=== PATIENT | female | born 1950 | race Caucasian/White ===

== ENCOUNTER 2018-05-31 13:15 | Inpatient (IN) | payer OTHER ==
[~2018-05-31] VITALS: Ht 152.4 cm; Wt 97.0 kg
[2018-05-31 14:39] LABS: HEMATOCRIT 32.2 % (36.0-46.0); MCH 30.9 PG (29.0-34.0); MCHC 34.2 G/DL (30.0-36.0); MCV 90.4 FL (83-99); PLATELET COUNT 176 K/uL (156-360); RBC DIS.WIDTH-CV 12.9 % (11.8-14.6); RBC DIS.WIDTH-SD 43.2 % (39-53); RED BLOOD COUNT 3.56 M/uL (3.80-5.20); WHITE BLOOD COUNT 17.8 K/uL (4.1-10.2)
[2018-05-31 14:47] LABS: ALBUMIN 3.3 g/dL (3.2-4.8)
[2018-05-31 14:48] LABS: CHLORIDE 97 mEq/L (99-109); POTASSIUM 3.5 mEq/L (3.7-5.4); SODIUM 133 mEq/L (136-147)
[2018-05-31 14:50] LABS: GLUCOSE 149 mg/dL (70-99); TOTAL PROTEIN 7.4 g/dL (6.4-8.3)
[2018-05-31 14:53] LABS: ALKALINE PHOSPHATASE 183 IU/L (3-129)
[2018-05-31 14:54] LABS: CREATININE 2.1 mg/dL (0.6-1.3); GFR ESTIMATE (CALCULATED) 25 mL/min/
[2018-05-31 14:55] LABS: AST (GOT) 65 IU/L (2-34); UREA NITROGEN (BUN) 68 mg/dL (9-23)
[2018-05-31 14:56] LABS: ALT (GPT) 52 IU/L (3-49)
[2018-05-31 14:57] LABS: LIPASE 33 U/L (1.0-51.0)
[2018-05-31 16:23] LABS: APPEARANCE CLEAR ((CLEAR)); BILIRUBIN NEGATIVE; BLOOD NEGATIVE; COLOR YELLOW ((YELLOW)); GLUCOSE (STRIP) NEGATIVE; KETONES NEGATIVE; LEUKOCYTES MODERATE; NITRITE NEGATIVE; PROTEIN (STRIP) NEGATIVE; SPECIFIC GRAVITY 1.009 (1.000-1.030); UROBILINOGEN 0.2 MG/DL (0.2-1.0)
[2018-05-31 16:55] LABS: RED BLOOD CELLS 0-5 /HPF (0-5); WHITE BLOOD CELLS 30-40 /HPF (0-5)
[2018-05-31 16:57] LABS: EPITHELIAL CELLS RARE /HPF
[2018-05-31 16:58] LABS: BACTERIA 3+ /HPF; CALCIUM OXALATE CRYSTALS RARE /HPF; HYALINE CASTS 0-5 /LPF; MUCUS NONE SEEN /LPF; UCUL ADDED? YES
[2018-05-31] MEDS ORDERED: SYNTHROID150 MCG PO (19:33)
[2018-05-31] MEDS ORDERED: OMEPRAZOLE40 M1 PO (19:33)
[2018-05-31] MEDS ORDERED: HYDROCHLOROTH12.5 M3 PO (19:34)
[2018-05-31] MEDS ORDERED: ZOFRAN4 MG PO (19:34)
[2018-05-31] MEDS ORDERED: LISINOPRIL20 MG PO (19:34)
[2018-05-31] MEDS ORDERED: PROMETHAZINE HC25 M1 PO (19:34)
[2018-05-31] MEDS ORDERED: ALDACTONE25 MG PO (19:34)
[2018-05-31] MEDS ORDERED: LIPITOR10 MG PO (19:34)
[2018-05-31] MEDS ORDERED: ALEVE220 MG PO (19:35)
[2018-05-31] MEDS ORDERED: LYRICA100 MG PO (19:35)
[2018-05-31] MEDS ORDERED: DIGESTIVE ENZY1 EAC3 PO (19:35)
[2018-05-31] MEDS ORDERED: HAIR, SKIN & N1 EAC1 PO (19:36)
[2018-05-31] MEDS ORDERED: BENADRYL ALLERG25 MG PO (19:36)
[2018-06-01] VITALS (19 sets, daily range): BP systolic 90–151; BP diastolic 43–109
[2018-06-01 01:07] LABS: HEMATOCRIT 26.6 % (36.0-46.0); HEMOGLOBIN 9.1 G/DL (11.9-15.5); MCH 31.2 PG (29.0-34.0); MCHC 34.2 G/DL (30.0-36.0); MCV 91.1 FL (83-99); PLATELET COUNT 142 K/uL (156-360); RBC DIS.WIDTH-CV 13.2 % (11.8-14.6); RBC DIS.WIDTH-SD 43.8 % (39-53); RED BLOOD COUNT 2.92 M/uL (3.80-5.20); WHITE BLOOD COUNT 10.6 K/uL (4.1-10.2)
[2018-06-01 01:57] LABS: COMMENTS - BLOOD GASES C; DEVICE VENT; FI02 60 %; MECHANICAL RATE 12 resp/min; MODE AC; PEEP 7.5 CM/H20; SITE RB; TIDAL VOLUME 450 ML; TOTAL RESP RATE 20 resp/min
[2018-06-01 01:58] LABS: BASE EXCESS -6.3 mEq/L (-3 to +3); CARBOXY HGB 0 % (0-5); METHEMOGLOBIN 0 % (0-1.5); O2 SATURATION (CALCULATED) 97.7 % (95-99); PCO2 36 mm Hg (35-45); PO2 263 mm Hg (80-100); pH 7.33 (7.35-7.45)
[2018-06-01 07:22] LABS: ALBUMIN 2.2 G/DL (3.2-4.8); ALKALINE PHOSPHATASE 138 IU/L (3-129); ALT (GPT) 45 IU/L (3-49); AST (GOT) 72 IU/L (2-34); CHLORIDE 112 MEQ/L (99-109); GLUCOSE 169 mg/dL (70-99); MAGNESIUM 1.1 mg/dl (1.3-2.7); PHOSPHORUS 3.6 mg/dL (2.5-4.9); POTASSIUM 3.7 MEQ/L (3.7-5.4); TOTAL BILIRUBIN 0.7 MG/DL (0.0-1.0); TOTAL PROTEIN 4.7 G/DL (6.4-8.3); UREA NITROGEN (BUN) 33 mg/dL (9-23)
[2018-06-01 07:23] LABS: GFR ESTIMATE (CALCULATED) 58 mL/min/; SODIUM 143 MEQ/L (136-147)
[2018-06-01 08:17] LABS: HEMOGLOBIN 9.3 G/DL (11.9-15.5); MCH 30.3 PG (29.0-34.0); MCHC 32.1 G/DL (30.0-36.0); MCV 94.5 FL (83-99); PLATELET COUNT 154 K/uL (156-360); RBC DIS.WIDTH-CV 13.6 % (11.8-14.6); RBC DIS.WIDTH-SD 47.1 % (39-53); RED BLOOD COUNT 3.07 M/uL (3.80-5.20); WHITE BLOOD COUNT 12.7 K/uL (4.1-10.2)
[2018-06-01 12:04] LABS: HEMOGLOBIN A1c (GLYCOHEMOGLOB) 6.7 % (Below 5.7)
[2018-06-01 13:27] LABS: COMMENTS - BLOOD GASES A+C+; DEVICE VENT; SITE RR
[2018-06-01 13:28] LABS: MODE TC; PCO2 28 mm Hg (35-45); PO2 168 mm Hg (80-100); TOTAL RESP RATE 33 resp/min
[2018-06-01 13:29] LABS: BASE EXCESS -6.6 mEq/L (-3 to +3); BICARBONATE 17.3 mEq/L (22-26); CARBOXY HGB 0 % (0-5); METHEMOGLOBIN 0 % (0-1.5)
[2018-06-01 19:58] LABS: CHLORIDE 115 MEQ/L (99-109); CREATININE 0.8 MG/DL (0.6-1.3); GFR ESTIMATE (CALCULATED) > 59 mL/min/; GLUCOSE 195 mg/dL (70-99); MAGNESIUM 1.9 mg/dl (1.3-2.7); SODIUM 142 MEQ/L (136-147); UREA NITROGEN (BUN) 20 mg/dL (9-23)
[2018-06-02] VITALS: BP 127/60
[2018-06-02 04:30] VITALS: BP 109/49
[2018-06-02 07:14] VITALS: BP 136/59
[2018-06-02 09:21] LABS: HEMATOCRIT 22.7 % (36.0-46.0); HEMOGLOBIN 7.5 G/DL (11.9-15.5); MCH 30.2 PG (29.0-34.0); MCV 91.5 FL (83-99); PLATELET COUNT 154 K/uL (156-360); RBC DIS.WIDTH-CV 13.5 % (11.8-14.6); RBC DIS.WIDTH-SD 45.6 % (39-53); RED BLOOD COUNT 2.48 M/uL (3.80-5.20); WHITE BLOOD COUNT 6.1 K/uL (4.1-10.2)
[2018-06-02 09:49] LABS: CHLORIDE 108 MEQ/L (99-109); CREATININE 0.6 MG/DL (0.6-1.3); GFR ESTIMATE (CALCULATED) > 59 mL/min/; GLUCOSE 205 mg/dL (70-99); POTASSIUM 3.4 MEQ/L (3.7-5.4); SODIUM 144 MEQ/L (136-147); UREA NITROGEN (BUN) 11 mg/dL (9-23)
[2018-06-02 11:28] VITALS: BP 137/48
[2018-06-02 14:26] VITALS: BP 135/80
[2018-06-02 17:49] LABS: HEMATOCRIT 23.4 % (36.0-46.0); HEMOGLOBIN 7.7 G/DL (11.9-15.5); MCH 30.2 PG (29.0-34.0); MCHC 32.9 G/DL (30.0-36.0); MCV 91.8 FL (83-99); PLATELET COUNT 147 K/uL (156-360); RBC DIS.WIDTH-CV 13.5 % (11.8-14.6); RBC DIS.WIDTH-SD 45.1 % (39-53); RED BLOOD COUNT 2.55 M/uL (3.80-5.20); WHITE BLOOD COUNT 5.9 K/uL (4.1-10.2)
[2018-06-02 20:00] VITALS: BP 133/60
[2018-06-03] VITALS: BP 118/49
[2018-06-03 04:48] VITALS: BP 106/54
[2018-06-03 05:34] LABS: HEMATOCRIT 22.8 % (36.0-46.0); HEMOGLOBIN 7.3 G/DL (11.9-15.5); MCH 29.6 PG (29.0-34.0); MCV 92.3 FL (83-99); PLATELET COUNT 159 K/uL (156-360); RBC DIS.WIDTH-CV 13.2 % (11.8-14.6); RBC DIS.WIDTH-SD 45.1 % (39-53); RED BLOOD COUNT 2.47 M/uL (3.80-5.20)
[2018-06-03 06:09] LABS: CHLORIDE 106 MEQ/L (99-109); CREATININE 0.6 MG/DL (0.6-1.3); GFR ESTIMATE (CALCULATED) > 59 mL/min/; GLUCOSE 157 mg/dL (70-99); MAGNESIUM 1.1 mg/dl (1.3-2.7); PHOSPHORUS 1.8 mg/dL (2.5-4.9); POTASSIUM 3.5 MEQ/L (3.7-5.4); SODIUM 142 MEQ/L (136-147); UREA NITROGEN (BUN) 7 mg/dL (9-23)
[2018-06-03 09:00] VITALS: BP 148/68
[2018-06-03 11:38] VITALS: BP 149/65
[2018-06-03 16:07] VITALS: BP 156/72
[2018-06-03 19:56] VITALS: BP 137/62
[2018-06-04 00:39] VITALS: BP 131/61
[2018-06-04 04:12] VITALS: BP 143/63
[2018-06-04 06:52] LABS: CHLORIDE 104 MEQ/L (99-109); CREATININE 0.6 MG/DL (0.6-1.3); GFR ESTIMATE (CALCULATED) > 59 mL/min/; GLUCOSE 152 mg/dL (70-99); POTASSIUM 4.1 MEQ/L (3.7-5.4); SODIUM 139 MEQ/L (136-147); UREA NITROGEN (BUN) 4 mg/dL (9-23)
[2018-06-04 07:06] LABS: MAGNESIUM 1.6 mg/dl (1.3-2.7); PHOSPHORUS 2.8 mg/dL (2.5-4.9)
[2018-06-04 09:00] VITALS: BP 150/67
[2018-06-04 10:09] LABS: HEMATOCRIT 27.5 % (36.0-46.0); HEMOGLOBIN 8.9 G/DL (11.9-15.5); MCH 30.1 PG (29.0-34.0); MCHC 32.4 G/DL (30.0-36.0); MCV 92.9 FL (83-99); RBC DIS.WIDTH-CV 12.9 % (11.8-14.6); RBC DIS.WIDTH-SD 43.7 % (39-53); RED BLOOD COUNT 2.96 M/uL (3.80-5.20); WHITE BLOOD COUNT 6.8 K/uL (4.1-10.2)
[2018-06-04 10:41] LABS: PLATELET COUNT 221 K/uL (156-360)
[2018-06-04 12:31] VITALS: BP 194/83
[2018-06-04 17:00] VITALS: BP 126/60
[2018-06-04 19:40] VITALS: BP 129/58
[2018-06-05 00:15] VITALS: BP 128/62
[2018-06-05 04:26] VITALS: BP 135/59
[2018-06-05 05:54] LABS: HEMATOCRIT 25.5 % (36.0-46.0); HEMOGLOBIN 8.3 G/DL (11.9-15.5); MCH 30.1 PG (29.0-34.0); MCHC 32.5 G/DL (30.0-36.0); MCV 92.4 FL (83-99); PLATELET COUNT 254 K/uL (156-360); RBC DIS.WIDTH-SD 42.8 % (39-53); RED BLOOD COUNT 2.76 M/uL (3.80-5.20); WHITE BLOOD COUNT 8.2 K/uL (4.1-10.2)
[2018-06-05 06:18] LABS: CHLORIDE 102 MEQ/L (99-109); CREATININE 0.6 MG/DL (0.6-1.3); GFR ESTIMATE (CALCULATED) > 59 mL/min/; GLUCOSE 176 mg/dL (70-99); MAGNESIUM 1.4 mg/dl (1.3-2.7); PHOSPHORUS 3.1 mg/dL (2.5-4.9); SODIUM 139 MEQ/L (136-147); UREA NITROGEN (BUN) 5 mg/dL (9-23)
[2018-06-05 08:00] VITALS: BP 130/63
[2018-06-05 13:12] VITALS: BP 132/60
[2018-06-05 17:10] VITALS: BP 116/64
[2018-06-05 21:09] VITALS: BP 131/56
[2018-06-06] VITALS (8 sets, daily range): BP systolic 96–132; BP diastolic 50–72
[2018-06-06 06:19] LABS: HEMATOCRIT 25.8 % (36.0-46.0); HEMOGLOBIN 8.3 G/DL (11.9-15.5); MCH 29.9 PG (29.0-34.0); MCHC 32.2 G/DL (30.0-36.0); MCV 92.8 FL (83-99); PLATELET COUNT 259 K/uL (156-360); RBC DIS.WIDTH-CV 13.1 % (11.8-14.6); RED BLOOD COUNT 2.78 M/uL (3.80-5.20); WHITE BLOOD COUNT 8.8 K/uL (4.1-10.2)
[2018-06-06 07:36] LABS: CHLORIDE 104 MEQ/L (99-109); CREATININE 0.8 MG/DL (0.6-1.3); GFR ESTIMATE (CALCULATED) > 59 mL/min/; GLUCOSE 171 mg/dL (70-99); MAGNESIUM 1.2 mg/dl (1.3-2.7); POTASSIUM 4.2 MEQ/L (3.7-5.4); SODIUM 142 MEQ/L (136-147); UREA NITROGEN (BUN) 5 mg/dL (9-23)
[2018-06-07 05:15] VITALS: BP 126/58
[2018-06-07 05:42] LABS: HEMATOCRIT 24.6 % (36.0-46.0); HEMOGLOBIN 7.9 G/DL (11.9-15.5); MCH 29.8 PG (29.0-34.0); MCHC 32.1 G/DL (30.0-36.0); MCV 92.8 FL (83-99); NRBC (%) 0.2 /100 WBC (0-0); PLATELET COUNT 268 K/uL (156-360); RBC DIS.WIDTH-CV 13.4 % (11.8-14.6); RBC DIS.WIDTH-SD 45.1 % (39-53); RED BLOOD COUNT 2.65 M/uL (3.80-5.20); WHITE BLOOD COUNT 8.5 K/uL (4.1-10.2)
[2018-06-07 06:01] LABS: CHLORIDE 104 MEQ/L (99-109); CREATININE 0.7 MG/DL (0.6-1.3); GFR ESTIMATE (CALCULATED) > 59 mL/min/; GLUCOSE 183 mg/dL (70-99); POTASSIUM 4.2 MEQ/L (3.7-5.4); SODIUM 141 MEQ/L (136-147); UREA NITROGEN (BUN) 6 mg/dL (9-23)
[2018-06-07 08:28] VITALS: BP 119/59
[2018-06-07] MEDS ORDERED: HYDROCODON-ACE1 EAC7 PO (11:45)
[2018-06-07 11:59] VITALS: BP 107/58
== END 2018-06-07 15:13 | disposition home or self-care (01) | DRG 853 ==
LOC: RME 13:15 → EME 13:15 → CANRESERV 21:35 → ENRESERV 21:35 → RME 21:58 → SDC 21:58 → ENRESERV 22:01 → CANRESERV 22:01 → ENRESERV 23:45 → 4EAST 23:52 → 4WEST 23:52 → ENRESERV 06-01 18:55 → 4EAST 06-01 21:04 → ENRESERV 06-05 18:01 → 2EAST 06-05 20:47
PROVIDERS: Internal Medicine; Physician Assistant; Surgery
DX: A41.51 Sepsis due to Escherichia coli [E. coli] (principal); R65.20 Severe sepsis without septic shock; K80.00 Calculus of gallbladder with acute cholecystitis without obstruction; J95.821 Acute postprocedural respiratory failure; N17.9 Acute kidney failure, unspecified; N39.0 Urinary tract infection, site not specified; E87.6 Hypokalemia; I95.9 Hypotension, unspecified; T81.83XA Persistent postprocedural fistula, initial encounter; Y83.8 Other surgical procedures as the cause of abnormal reaction of the patient, or of later complication, without mention of misadventure at the time of the procedure; K63.2 Fistula of intestine; K43.9 Ventral hernia without obstruction or gangrene; E78.00 Pure hypercholesterolemia, unspecified; D64.9 Anemia, unspecified; M79.7 Fibromyalgia; E03.9 Hypothyroidism, unspecified; E78.5 Hyperlipidemia, unspecified; I10 Essential (primary) hypertension; I25.10 Atherosclerotic heart disease of native coronary artery without angina pectoris; E11.9 Type 2 diabetes mellitus without complications; Z79.4 Long term (current) use of insulin; Z85.42 Personal history of malignant neoplasm of other parts of uterus; Z85.038 Personal history of other malignant neoplasm of large intestine; Z95.1 Presence of aortocoronary bypass graft; I25.2 Old myocardial infarction
CPT/HCPCS: 36600; 71045; 74176; 74300; 80048; 80048 91; 80053; 81003; 82330; 82948; 83036; 83605; 83630; 83690; 83735; 84100; 84132 91; 84999; 85027; 86850; 86900; 86901; 87040; 87070; 87075; 87077; 87086; 87186; 87205; 87493; 87506; 87641; 87801; 88304; 93005; 94002; 94003; 94640; 94760; 97530 GP; 99281; 99285; A6214; C1753; C9113; J1170; J1335; J1644; J1815; J2250; J2405; J2543; J2704; J3010; J3370; J3475; J3480; J7030; J7050; J7070; S0020